=== PATIENT | female | born 1950 | race Caucasian/White ===

== ENCOUNTER 2016-11-17 13:03 | Emergency (ER) | payer MEDICARE, BC ==
[~2016-11-17] VITALS: Ht 162.6 cm; Wt 99.8 kg
[2016-11-17] MEDS ORDERED: TDAP DIPH,PERTUSS,TET VAC/PF 0.5 ML DISP.SYRIN IM ONE ×2 (13:30→14:36)
--- NOTE | 2016-11-17 14:20 | NUR ---
PT IS IN ROOM #2B. DR COLBY EVALUATED THE PT.
[2016-11-17] MEDS ORDERED: KETOROLAC TROMETHAMINE 30 MG INJ IM ONE (15:30)
[2016-11-17] MEDS ORDERED: KETOROLAC TROMETHAMINE 30 MG INJ ONE (15:48)
--- NOTE | 2016-11-17 16:02 | NUR ---
Patient discharged to home in stable conditon. Written and verbal after care instructions given. Patient verbalizes understanding of instructions.
== END 2016-11-17 16:07 | disposition home or self-care (01) ==
LOC: ER 13:03
DX: S09.90XA Unspecified injury of head, initial encounter (principal); S16.1XXA Strain of muscle, fascia and tendon at neck level, initial encounter; S50.02XA Contusion of left elbow, initial encounter; S80.02XA Contusion of left knee, initial encounter; S80.01XA Contusion of right knee, initial encounter; S20.212A Contusion of left front wall of thorax, initial encounter; I10 Essential (primary) hypertension; J44.9 Chronic obstructive pulmonary disease, unspecified; E11.9 Type 2 diabetes mellitus without complications; Z79.4 Long term (current) use of insulin; W19.XXXA Unspecified fall, initial encounter; Y93.89 Activity, other specified; Y99.8 Other external cause status; Y92.89 Other specified places as the place of occurrence of the external cause
CPT/HCPCS: 70450; 71101; 72125; 73080; 73110 ×2; 73562 ×2; 82962; 90471; 90715; 93005; 96372; 99284; A4663; J1885